=== PATIENT | male | born 1955 | race Caucasian/White ===

== ENCOUNTER → 2016-07-19 | Outpatient (CLI) | payer OTHER ==
[~2016-07-19] MED LIST: BENADRYL25 MG; CRESTOR40 MG; NAPROSYN500 MG PO; PROTONIX40 M2
== END ==
LOC: CAT 08:06
DX: R31.9 Hematuria, unspecified (principal)

== ENCOUNTER → 2017-06-26 | Outpatient (CLI) | payer OTHER | LOC: RAD 14:23 | DX: M25.511 Pain in right shoulder (principal); M25.512 Pain in left shoulder ==

== ENCOUNTER → 2017-10-31 | Outpatient (CLI) | payer OTHER | LOC: MRI 14:48 | DX: M75.101 Unspecified rotator cuff tear or rupture of right shoulder, not specified as traumatic (principal); M75.51 Bursitis of right shoulder; E78.5 Hyperlipidemia, unspecified ==

== ENCOUNTER → 2019-12-28 | Outpatient (CLI) | payer OTHER ==
[2019-12-28 10:43] LABS: ABSOLUTE NEUTROPHILS 5.3 thou/uL (1.4-8.2); BASOPHILS 0.6 % (0.0-2.0); EOSINOPHILS 2.7 % (0.0-3.0); HEMATOCRIT 45.4 % (42.0-52.0); HEMOGLOBIN 15.5 gm/dL (14.0-18.0); LYMPHOCYTES 21.6 % (24.0-44.0); MCH 29.9 pg (26.0-34.0); MCHC 34.1 g/dL (28.0-37.0); MCV 87.7 fL (80.0-100.0); MONOCYTES 7.2 % (1.0-8.0); PLATELET COUNT 218 thou/uL (150-400); POLYS 67.9 % (36.0-66.0); RBC 5.17 mil/uL (4.50-6.00); RDW 13.7 % (10.5-14.5); WBC 7.8 thou/uL (4.0-11.0)
[2019-12-28 11:10] LABS: ALBUMIN 4.4 g/dL (3.4-5.0); ANION GAP 9 mmol/L (7-16); BUN 13 mg/dL (7-18); CALCIUM 8.8 mg/dL (8.5-10.1); CHLORIDE 104 mmol/L (98-107); CHOLESTEROL 125 mg/dL (<200); CO2 27 mmol/L (21-32); GLUCOSE 99 mg/dL (74-106); HDL CHOLESTEROL 54 mg/dL (>40); LDL CHOLESTEROL 59 mg/dL (<100); POTASSIUM 3.9 mmol/L (3.5-5.1); SGOT 25 U/L (15-37); SGPT 30 U/L (30-65); SODIUM 140 mmol/L (136-145); TC:HDL 2.3 Ratio (Not establshd); TOTAL BILIRUBIN 0.8 mg/dL (0.2-1.0); TOTAL PROTEIN 7.3 g/dL (6.4-8.2); TRIGLYCERIDE 62 mg/dL (<150); VLDL 12 mg/dL (<40)
[2019-12-29 01:06] LABS: GLYCOHEMOGLOBIN (HGB A1C) 5.7 % (4.8-5.6)
== END ==
LOC: LABMALL 12-23 07:57
PROVIDERS: ATTEND Neuromusculoskeletal Medicine & OMM
DX: E78.2 Mixed hyperlipidemia (principal); N40.1 Benign prostatic hyperplasia with lower urinary tract symptoms; R73.03 Prediabetes; Z00.00 Encounter for general adult medical examination without abnormal findings; Z79.899 Other long term (current) drug therapy

== ENCOUNTER 2020-07-06 11:34 | Emergency (ER) | payer OTHER ==
[~2020-07-06] VITALS: Ht 160 cm; Wt 78.9 kg
[2020-07-06] MEDS ORDERED: FLOMAX0.4 MG PO (11:45)
[2020-07-06] MEDS ORDERED: PROTONIX40 M2 PO (11:46)
[2020-07-06] MEDS ORDERED: CRESTOR40 MG PO (11:46)
[2020-07-06 12:21] LABS: ABSOLUTE NEUTROPHILS 2.4 thou/uL (1.4-8.2); BASOPHILS 1.1 % (0.0-2.0); EOSINOPHILS 6.5 % (0.0-3.0); HEMATOCRIT 45.2 % (42.0-52.0); LYMPHOCYTES 41.9 % (24.0-44.0); MCH 29.3 pg (26.0-34.0); MCHC 33.2 g/dL (28.0-37.0); MCV 88.3 fL (80.0-100.0); MONOCYTES 11.3 % (1.0-8.0); PLATELET COUNT 215 thou/uL (150-400); POLYS 39.2 % (36.0-66.0); RBC 5.13 mil/uL (4.50-6.00); RDW 13.8 % (10.5-14.5); WBC 6.2 thou/uL (4.0-11.0)
--- NOTE | 2020-07-06 12:22 | EKG ---
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 Dialysis Nurse: : 1955 Requested By: Coleen Gaspar Order Number: [id number] MD: David Dover Measurements Intervals [place] Rate: 51 P: 7 W[place]: 124 QRS: 24 QRSD: 93 T: -3 QT: 430 QTc: 397 Interpretive Statements Sinus rhythm Borderline T abnormalities, inferior leads Compared to ECG 12/24/2013 09:52:28 T-wave abnormality now present Electronically Signed On 07-06-2020 12:22:21 CDT by David Dover [email or web address] <ELECTRONICALLY SIGNED> By: David Dover MD, [facility] 07/06/20 1222 1139 1139 David Dover MD, FACC /EPI
[2020-07-06 12:24] LABS: ANION GAP 9 mmol/L (7-16); BUN 11 mg/dL (7-18); CALCIUM 8.9 mg/dL (8.5-10.1); CHLORIDE 106 mmol/L (98-107); CO2 28 mmol/L (21-32); GLUCOSE 99 mg/dL (74-106); POTASSIUM 3.5 mmol/L (3.5-5.1); SODIUM 143 mmol/L (136-145)
[2020-07-06 12:34] LABS: ALBUMIN 4.1 g/dL (3.4-5.0); DIRECT BILIRUBIN 0.1 mg/dL (<0.1-0.2); SGOT 29 U/L (15-37); SGPT 32 U/L (16-63); TOTAL BILIRUBIN 0.6 mg/dL (0.2-1.0); TOTAL PROTEIN 7.1 g/dL (6.4-8.2); TROPONIN-I <0.06 ng/mL (<0.06)
[2020-07-06 14:50] VITALS: BP 168/95
== END 2020-07-06 14:51 | disposition home or self-care (01) ==
LOC: ER 11:34
PROVIDERS: Emergency Medicine
DX: R07.89 Other chest pain (principal); E78.5 Hyperlipidemia, unspecified; Z79.899 Other long term (current) drug therapy; Z91.09 Other allergy status, other than to drugs and biological substances

== ENCOUNTER → 2020-09-07 | Outpatient (CLI) | payer OTHER ==
[~2020-09-07] VITALS: Ht 160 cm; Wt 78.0 kg
[~2020-09-07] MED LIST changes: +ALIGN4 MG PO; +CRESTOR40 MG PO; +EXCEDRIN MIGRA1 EAC1 PO; +FLOMAX0.4 MG PO; +FLONASE 0.05%50 MCG NASAL; +ONE-DAILY MULT1 EAC1 PO; +PROTONIX40 M2 PO; +QVAR REDIHALE10.6 GM INH
--- NOTE | 2020-09-07 08:59 | EKG ---
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
--- NOTE | 2020-09-10 11:11 | P ---
[facility] [place] [address] PROCEDURE REPORT Name: ESTEBAN LIPSCOMB Room #: REG [facility].#: [id number] Admission: 09/07/20 Attend Phys: Bryan Alfred Discharge: Date of : 57 Report #: [id number] THIS REPORT FOR: cc: Vaibhav Parnell,Bryan Adrian MD ~ DOC #: [id number] cc: MD Bryan Heck MD DATE OF SERVICE: 09/07/2020 PROCEDURE PERFORMED: Colonoscopy with biopsies. HISTORY OF PRESENT ILLNESS: The patient is a 65-year-old male with a history of colon polyps, here for a 5-year followup. Denies any symptoms. No family history of colon cancer. DESCRIPTION OF PROCEDURE: The risks and benefits of the procedure were explained to the patient, those risks including but not limited to bleeding, perforation and the risk of sedation. He understood these risks and gave informed consent. Sedation was given using propofol per anesthesia. Next, a digital rectal exam was initially performed, which was normal. Next, using a standard Olympus colonoscope, the scope was placed in the patient's anus and advanced under direct vision to the cecum. The overall prep was good. The cecum and ileocecal valve were normal in appearance. In the ascending colon, a 4-mm sessile polyp was noted. This was removed with cold forceps, otherwise normal. The transverse, descending and sigmoid colon were normal. The rectal mucosa was normal. On retroflexion, no abnormalities were noted. The scope was then withdrawn and the procedure terminated. The patient tolerated the procedure well. IMPRESSION: 1. Small colonic polyp. 2. Otherwise, normal colonoscopy. RECOMMENDATIONS: 1. Await biopsy results. 2. If polyp is hyperplastic, repeat in 10 years; if adenomatous polyp, repeat in 5 years. Thank you for allowing me to participate in his care. Bryan Downs MD [facility] [address] [address] PROCEDURE REPORT Name: ESTEBAN LIPSCOMB Room #: REG Ashu Dunn#: [id number] Admission: 09/07/20 Attend Phys: Bryan Alfred Discharge: Date of : 57 Report #: [id number] <ELECTRONICALLY SIGNED> By: Bryan Downs MD 09/10/20 1111 0850 16 Bryan Downs MD /nt
--- NOTE | 2020-09-12 13:07 | PATH ---
[facility] [address] [place] [address] PATHOLOGY RPT PROCEDURE Name: KIRILL MACKEY Room #: REG [facility] M..#: [id number] Admission: 09/07/20 Date of : 57 Discharge: Report #: [id number] Path Case #: [id number] [facility] Accession Number: [id number] . 01 Material submitted: . colon - ASCENDING COLON POLYP. Modifiers: ascending . 01 Clinical history: . COLONOSCOPY POLYPS . 02 Diagnosis: Polyp, ascending colon polyp, endoscopic biopsy: - Inflamed and irritated hyperplastic polyp. - No definite dysplasia identified. 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 02 Electronically signed: . Kelly Garsia MD, Pathologist NPI- [id number] . 01 Gross description: . Received in formalin labeled "Kirill Mackey, ascending colon polyp" are multiple mello-brown soft tissue fragments measuring in aggregate 0.4 x 0.2 x 0.1 cm. The specimen is submitted entirely in A1. (ARNULFO; 09/08/2020) ARNULFO/ARNULFO 09/08/20202009 Local . 02 Pathologist provided ICD-10: K63.5, K52.9 . 02 CPT . 974885 Specimen Comment: A courtesy copy of this report has been sent to [phone], [phone] Specimen Comment: [id number] Specimen Comment: Report sent to / DR BAUTISTA Specimen Comment: Report sent to Specimen Comment: A duplicate report has been generated due to demographic updates. Performed at: [address] [id number] MD Shahab Patel MD Phone: [phone] Performed at: [address] [id number] [address] [address] PATHOLOGY RPT PROCEDURE Name: KIRILL MACKEY Room #: REG ROSS Dunn#: [id number] Admission: 09/07/20 Date of : 57 Discharge: Report #: [id number] Path Case #: [id number] MD Kelly Garsia MD Phone: [phone]
== END | disposition home or self-care (01) ==
LOC: GI 07:38
PROVIDERS: ATTEND Specialist
DX: Z12.11 Encounter for screening for malignant neoplasm of colon (principal); Z86.010 Personal history of colon polyps; K51.40 Inflammatory polyps of colon without complications; K52.9 Noninfective gastroenteritis and colitis, unspecified; E78.00 Pure hypercholesterolemia, unspecified; J45.909 Unspecified asthma, uncomplicated; Z98.890 Other specified postprocedural states; Z79.899 Other long term (current) drug therapy; Z87.891 Personal history of nicotine dependence
CPT/HCPCS: 62110; 62900

== ENCOUNTER → 2020-12-13 | Outpatient (CLI) | payer OTHER ==
[2020-12-13 09:37] LABS: EOSINOPHILS 6.3 % (0.0-3.0); HEMATOCRIT 47.8 % (42.0-52.0); HEMOGLOBIN 15.9 gm/dL (14.0-18.0); LYMPHOCYTES 31.5 % (24.0-44.0); MCH 29.2 pg (26.0-34.0); MCHC 33.3 g/dL (28.0-37.0); MCV 87.7 fL (80.0-100.0); MONOCYTES 8.9 % (1.0-8.0); PLATELET COUNT 253 thou/uL (150-400); POLYS 52.3 % (36.0-66.0); RBC 5.46 mil/uL (4.50-6.00); RDW 13.3 % (10.5-14.5); WBC 5.8 thou/uL (4.0-11.0)
[2020-12-13 09:57] LABS: ALBUMIN 4.2 g/dL (3.4-5.0); ANION GAP 10 mmol/L (7-16); BUN 10 mg/dL (7-18); CALCIUM 8.9 mg/dL (8.5-10.1); CHLORIDE 103 mmol/L (98-107); CHOLESTEROL 122 mg/dL (<200); CO2 29 mmol/L (21-32); GLUCOSE 108 mg/dL (74-106); HDL CHOLESTEROL 54 mg/dL (>40); LDL CHOLESTEROL 52 mg/dL (<100); POTASSIUM 3.5 mmol/L (3.5-5.1); SGOT 20 U/L (15-37); SGPT 30 U/L (30-65); SODIUM 142 mmol/L (136-145); TC:HDL 2.3 Ratio (Not establshd); TOTAL BILIRUBIN 0.6 mg/dL (0.2-1.0); TOTAL PROTEIN 7.4 g/dL (6.4-8.2); TRIGLYCERIDE 84 mg/dL (<150); VLDL 17 mg/dL (<40)
== END ==
LOC: LAB 08:21
PROVIDERS: ATTEND Neuromusculoskeletal Medicine & OMM
DX: Z12.5 Encounter for screening for malignant neoplasm of prostate (principal); K21.9 Gastro-esophageal reflux disease without esophagitis; Z79.899 Other long term (current) drug therapy; E78.2 Mixed hyperlipidemia